=== PATIENT | female | born 2000 ===

== ENCOUNTER 2018-06-28 08:21 | Outpatient (CLI) | payer OTHER | END 2018-06-28 08:23 | disposition home or self-care (01) | LOC: SONOGRAMA 08:21 | DX: R22.0 Localized swelling, mass and lump, head (principal) ==

== ENCOUNTER 2019-04-07 21:18 | Emergency (ER) | payer OTHER ==
[~2019-04-07] VITALS: Ht 162.6 cm; Wt 70.3 kg
[2019-04-07] MEDS ORDERED: CITALOPRAM HBR20 MG (21:48)
== END 2019-04-08 03:38 | disposition home or self-care (01) ==
LOC: ER 21:18
DX: R19.7 Diarrhea, unspecified (principal); E86.0 Dehydration

== ENCOUNTER 2019-12-16 23:12 | Emergency (ER) | payer OTHER | END 2019-12-17 04:48 | disposition home or self-care (01) | LOC: ER 23:12 | DX: K52.89 Other specified noninfective gastroenteritis and colitis (principal); E86.0 Dehydration ==